=== PATIENT | male | born 1940 | race Caucasian/White ===

== ENCOUNTER 2018-02-23 05:46 | Day surgery (SDC) | payer MEDICARE, OTHER ==
[2018-02-23] MEDS ORDERED: SOD CHLORIDE 0.9% 1,000 ML IV (06:00)
[2018-02-23 06:53] LABS: ADD MAN DIFF? NO
[2018-02-23 06:54] LABS: BASOPHIL # 0.1 10^3/ul (0.0-0.1); BASOPHILS % 0.8 % (0.0-2.0); EOSINOPHILS # 0.2 10^3/ul (0.0-0.5); EOSINOPHILS % 2.1 % (0.0-7.0); HEMOGLOBIN 14.1 g/dl (14.0-18.0); LYMPHOCYTES # 2.6 10^3/ul (0.8-2.9); LYMPHOCYTES % 28.9 % (15.0-51.0); MEAN CORPUSCULAR HEMOGLOBIN 28.8 pg (29.0-33.0); MEAN CORPUSCULAR HGB CONC 32.8 g/dl (32.0-37.0); MEAN CORPUSCULAR VOLUME 87.9 fl (82.0-101.0); MEAN PLATELET VOLUME 11.5 fl (7.4-10.4); MONOCYTE # 0.7 10^3/ul (0.3-0.9); NEUTROPHIL # 5.4 10^3/ul (1.6-7.5); NEUTROPHILS % 59.9 % (39.0-77.0); PLATELET COUNT 209 10^3/UL (140-415); RED BLOOD COUNT 4.89 10^6/ul (4.70-6.10); RED CELL DISTRIBUTION WIDTH 13.3 % (11.5-14.5)
[2018-02-23 07:11] LABS: ALANINE AMINOTRANSFERASE 36 IU/L (13-69); ALBUMIN 4.6 g/dl (3.3-4.9); ALBUMIN/GLOBULIN RATIO 1.64; ALKALINE PHOSPHATASE 75 IU/L (42-121); ANION GAP 16 (8-16); ASPARTATE AMINO TRANSFERASE 26 IU/L (15-46); BILIRUBIN,INDIRECT 1.1 mg/dl (0-1.1); BILIRUBIN,TOTAL 1.1 mg/dl (0.2-1.3); CARBON DIOXIDE 28 mmol/L (21-31); CHLORIDE 103 mmol/L (97-110); CHOL/HDL RATIO 4.3 RATIO; CHOLESTEROL 142 mg/dl (100-200); GLUCOSE 113 mg/dl (70-220); HDL CHOLESTEROL 33 mg/dl (31-75); LDL CHOLESTEROL,CALCULATED 74 mg/dl; TOTAL PROTEIN 7.4 g/dl (6.1-8.1); TRIGLYCERIDES 174 mg/dl (0-149)
[2018-02-23] MEDS ORDERED: HEPARIN 1000 UNITS/ML 10 ML INJ (07:11)
[2018-02-23] MEDS ORDERED: FENTAnyl 50 MCG/ML VIAL (07:12)
[2018-02-23] MEDS ORDERED: MIDAZOLAM 1 MG/ML 2 ML INJ (07:12)
[2018-02-23 07:16] LABS: BLOOD UREA NITROGEN 18 mg/dl (7-20); CALCIUM 9.4 mg/dl (8.4-10.2); CREATININE 1.07 mg/dl (0.61-1.24); POTASSIUM 4.3 mmol/L (3.5-5.1); SODIUM 143 mmol/L (135-144)
[2018-02-23 07:21] LABS: INR 0.97; PARTIAL THROMBOPLASTIN TIME 31.6 Sec (25.0-35.0)
[2018-02-23] MEDS ORDERED: LIDOCAINE 1% (MDV) 10 ML INJ (08:13)
[2018-02-23] MEDS ORDERED: BIVALIRUDIN 250MG /NS 50 ML 50 ML IVPB (08:13)
[2018-02-23] MEDS ORDERED: PHENYLephrine 10 MG INJ (08:23)
[2018-02-23] MEDS ORDERED: EPHEDrine 50 MG INJ (08:23)
[2018-02-23] MEDS: SOD CHLORIDE 0.9% 1,000 ML IV (08:50)
[2018-02-23] MEDS ORDERED: LABETALOL 200 MG TAB PO (09:00)
[2018-02-23] MEDS ORDERED: CHOLECALCIFEROL 400 UNITS TAB PO (09:00)
[2018-02-23] MEDS ORDERED: [UNRECOGNIZED DRUG - REMARK] XX (09:30)
[2018-02-23] MEDS: ASPIRIN 81 MG TAB PO (11:38)
[2018-02-23] MEDS ORDERED: ATORVASTATIN 80 MG TAB PO (21:00)
== END 2018-02-23 17:25 | disposition home or self-care (01) ==
LOC: SDS 05:46
DX: I70.203 Unspecified atherosclerosis of native arteries of extremities, bilateral legs (principal)
CPT/HCPCS: 37220; 75710; 75716; 76937; 80053; 80061; 85025; 85610; 85730